=== PATIENT | female | born 1960 | race Caucasian/White ===

== ENCOUNTER 2019-01-16 08:05 | Day surgery (SDC) | payer OTHER ==
[~2019-01-16 08:05] MED LIST: CIPROFLOXACIN 400 MG in D5W 200 ML IVPB
[2019-01-16] MEDS ORDERED: FENTAnyl 50 MCG/ML VIAL (10:11)
[2019-01-16] MEDS ORDERED: MIDAZOLAM 1 MG/ML 2 ML INJ (10:11)
[2019-01-16] MEDS ORDERED: PHENYLephrine (100 MCG/ML) 10ML SYG (10:22)
[2019-01-16] MEDS ORDERED: ONDANSETRON 4 MG INJ (10:47)
[2019-01-16] MEDS ORDERED: CIPROFLOXACIN 400MG/D5W 200 ML (10:47)
[2019-01-16] MEDS ORDERED: LIDOCAINE 2% (SDV) 5 ML INJ (10:47)
[2019-01-16] MEDS ORDERED: PROPOFOL 20 ML (10:47)
[2019-01-16] MEDS: IOHEXOL 300MG/ML 30 ML BTL (11:00)
[2019-01-16] MEDS ORDERED: DIPHENHYDRAMINE 50 MG INJ IV (11:30)
[2019-01-16] MEDS ORDERED: FENTAnyl 50 MCG/ML VIAL IV (11:30)
[2019-01-16] MEDS ORDERED: ONDANSETRON 4 MG INJ IV (11:30)
[2019-01-16] MEDS ORDERED: METOCLOPRAMIDE 10 MG INJ IV (11:30)
[2019-01-16] MEDS ORDERED: MEPERIDINE 25 MG INJ IV (11:30)
== END 2019-01-16 14:25 | disposition home or self-care (01) ==
LOC: SDS 08:05
DX: N13.2 Hydronephrosis with renal and ureteral calculous obstruction (principal); I10 Essential (primary) hypertension
CPT/HCPCS: 52332